=== PATIENT | male | born 1980 | race Caucasian/White ===

== ENCOUNTER 2020-07-26 12:07 | Emergency (ER) | payer OTHER ==
[~2020-07-26] VITALS: Ht 165.1 cm; Wt 77.3 kg
[2020-07-26 12:20] VITALS: BP 118/79
== END 2020-07-26 12:49 | disposition home or self-care (01) ==
LOC: ER 12:07
DX: U07.1 COVID-19 (principal); J02.9 Acute pharyngitis, unspecified; R50.9 Fever, unspecified; R09.89 Other specified symptoms and signs involving the circulatory and respiratory systems; R06.02 Shortness of breath; R07.89 Other chest pain; R51.9 Headache, unspecified; J45.909 Unspecified asthma, uncomplicated; Z72.89 Other problems related to lifestyle
CPT/HCPCS: 36415; 87635; 99283